=== PATIENT | male | born 1960 | race Caucasian/White ===

== ENCOUNTER → 2022-08-27 11:05 | Outpatient (BNVA) | payer OTHER, SELFPAY | PROVIDERS: PCP Internal Medicine; Visit Provider Internal Medicine | DX: M75.42 Impingement syndrome of left shoulder (principal) | CPT/HCPCS: 73030; 99202 ==

== ENCOUNTER → 2022-09-03 10:13 | Outpatient (BNVA) | payer OTHER, SELFPAY | PROVIDERS: PCP Internal Medicine; Visit Provider Internal Medicine | DX: M25.812 Other specified joint disorders, left shoulder (principal) | CPT/HCPCS: 99213 ==

== ENCOUNTER → 2022-09-10 10:05 | Outpatient (BNVA) | payer OTHER, SELFPAY | PROVIDERS: PCP Internal Medicine; Visit Provider Internal Medicine | DX: M25.812 Other specified joint disorders, left shoulder (principal) | CPT/HCPCS: 99213 ==

== ENCOUNTER → 2022-09-18 10:03 | Outpatient (BNVA) | payer OTHER, SELFPAY | PROVIDERS: PCP Internal Medicine; Visit Provider Internal Medicine | DX: M25.812 Other specified joint disorders, left shoulder (principal) | CPT/HCPCS: 99213 ==

== ENCOUNTER → 2022-10-02 10:05 | Outpatient (BNVA) | payer OTHER, SELFPAY | PROVIDERS: PCP Internal Medicine; Visit Provider Internal Medicine | DX: M24.812 Other specific joint derangements of left shoulder, not elsewhere classified (principal) | CPT/HCPCS: 99213 ==

== ENCOUNTER 2022-11-02 06:07 | Outpatient (REF) | payer OTHER, SELFPAY ==
--- NOTE | ~2022-11-02 | XR_ITS ---
EXAMINATION: XR SHOULDER, LEFT CLINICAL INFORMATION: Pain COMPARISON: None available. TECHNIQUE: AP external rotation, Grashey, scapular Y, and axillary views of the left shoulder. FINDINGS: The bones and soft tissues are normal. No fracture. Glenohumeral and acromioclavicular alignment is anatomic with normal joint space. No abnormal soft tissue calcifications. XR/XR shoulder LT min 2V IMPRESSION: Normal left shoulder.
== END 2022-11-02 06:08 | disposition home or self-care (01) ==
LOC: HO.HOSX 06:07
PROVIDERS: Visit Provider Physician Assistant
DX: M75.82 Other shoulder lesions, left shoulder (principal)
CPT/HCPCS: 20610; 73030; 99202; J1040

== ENCOUNTER 2022-11-19 06:16 | Outpatient (REF) | payer OTHER, SELFPAY ==
[2022-11-19 08:04] LABS: Cholesterol 210 mg/dL; Glucose Random 96 mg/dL (60-115); HDL Cholesterol 51 mg/dL; LDL Cholesterol Calculated 134 mg/dl; Magnesium 2.2 mg/dL (1.6-2.6); Triglycerides 126 mg/dL
[2022-11-19 08:27] LABS: Thyroid Stimulating Hormone 4.76 uIU/mL (0.32-4.0); Vitamin B12 309 pg/mL (200-900)
[2022-11-21 04:33] LABS: LDL Cholesterol Direct 141 mg/dL (<100)
[2022-11-26 15:28] LABS: Methylmalonic Acid 116 nmol/L (87-318)
== END 2022-11-19 06:17 | disposition home or self-care (01) ==
LOC: HO.LAB 06:16
PROVIDERS: PCP Internal Medicine; Visit Provider Internal Medicine
DX: R12 Heartburn (principal); E78.00 Pure hypercholesterolemia, unspecified; E03.8 Other specified hypothyroidism
CPT/HCPCS: 36415; 80061; 82607; 82947; 83721; 83735; 83921; 84443

== ENCOUNTER 2022-11-20 10:00 | Outpatient (RCR) | payer OTHER, SELFPAY ==
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
--- NOTE | 2022-11-20 11:05 | MHC.PT.DC ---
[facility] [place] Office [place] Office [place] Office [address] [phone] F: [phone] F: [phone] F: [phone] F: [phone] Physical Therapy Discharge Report Diagnosis: L shoulder pain Date of Surgery: N/A Date of Evaluation: 09/10/22 Date of Discharge: 11/20/22 Treatments to Date: 16 Cancellations to Date: 1 No Shows to Date: 0 Discharge Status: Achieved Goals Improved Function Independent with HEP Discharge Summary: The patient overall has minimal to no pain at this time. He occasionally has symptoms if he sleeps on his right shoulder for too long but tends to resolve by the morning. He is independent with his home exercise program. He denies any pain or difficulty with ADLs or work-related tasks at this time. He is discharged from this physical therapy plan of care to his HEP at this time. Electronically signed by: Rose Dickinson PT, DPT Please sign and return to therapist. Thank you for your referral.
== END 2022-11-20 11:05 | disposition home or self-care (01) ==
LOC: HO.PT 10:00
PROVIDERS: PCP Internal Medicine; Visit Provider Internal Medicine
DX: M25.512 Pain in left shoulder (principal)
CPT/HCPCS: 97110; 97140; 97161; 97164

== ENCOUNTER → 2022-12-14 09:37 | Outpatient (BNVA) | payer OTHER, SELFPAY | PROVIDERS: PCP Internal Medicine; Visit Provider Physician Assistant | DX: M75.82 Other shoulder lesions, left shoulder (principal) | CPT/HCPCS: 99212 ==

== ENCOUNTER 2024-09-08 06:43 | Outpatient (REF) | payer OTHER, SELFPAY ==
[2024-09-08 07:53] LABS: Cholesterol 171 mg/dL (<200); Glucose Fasting 95 mg/dL (60-99); HDL Cholesterol 46 mg/dL (>40); LDL Cholesterol Calculated 105 mg/dL (<100); Magnesium 2.1 mg/dL (1.6-2.6); Triglycerides 104 mg/dL (<150)
[2024-09-08 08:08] LABS: Thyroid Stimulating Hormone 3.87 uIU/mL (0.32-4.0)
[2024-09-08 08:16] LABS: Vitamin B12 307 pg/mL (200-900)
[2024-09-11 01:34] LABS: LDL Cholesterol Direct 110 mg/dL (<100)
[2024-09-13 10:04] LABS: Methylmalonic Acid 115 nmol/L (69-390)
== END 2024-09-08 06:44 | disposition home or self-care (01) ==
LOC: HO.LAB 06:43
PROVIDERS: PCP Internal Medicine; Visit Provider Internal Medicine
DX: E03.8 Other specified hypothyroidism (principal); E78.00 Pure hypercholesterolemia, unspecified; R12 Heartburn
CPT/HCPCS: 36415; 80061; 82607; 82947; 83721; 83735; 83921; 84443